=== PATIENT | male | born 1955 | race Two or more races ===

== ENCOUNTER → 2017-09-08 | Outpatient (CLI) | payer BC | LOC: M SMT PRO 08:32 | DX: R97.20 Elevated prostate specific antigen [PSA] (principal) | CPT/HCPCS: G0416 ==

== ENCOUNTER → 2017-09-21 | Outpatient (REF) | payer BC | LOC: M SMT 17:22 | DX: R33.9 Retention of urine, unspecified (principal) | CPT/HCPCS: 87086 ==

== ENCOUNTER → 2021-10-22 | Outpatient (CLI) | payer BC, MEDICARE | LOC: M PLALAB 15:41 | PROVIDERS: ATTEND Urology | DX: R97.20 Elevated prostate specific antigen [PSA] (principal) ==

== ENCOUNTER → 2021-12-31 | Outpatient (REF) | payer BC, MEDICARE | LOC: M LAB REF 17:33 | PROVIDERS: ATTEND Surgery | DX: D22.5 Melanocytic nevi of trunk (principal); L90.5 Scar conditions and fibrosis of skin ==

== ENCOUNTER → 2022-03-07 | Outpatient (REF) | payer MEDICARE | LOC: M SFHCDERM 08:03 | PROVIDERS: ATTEND Nurse Practitioner Family | DX: D22.5 Melanocytic nevi of trunk (principal) ==

== ENCOUNTER → 2022-04-29 | Outpatient (REF) | payer MEDICARE | LOC: M LAB REF 17:33 | PROVIDERS: ATTEND Surgery | DX: D22.5 Melanocytic nevi of trunk (principal) ==

== ENCOUNTER → 2022-10-07 | Outpatient (CLI) | payer MEDICARE | LOC: M PLALAB 14:21 | PROVIDERS: ATTEND Urology | DX: R97.20 Elevated prostate specific antigen [PSA] (principal) ==

== ENCOUNTER → 2022-12-04 | Outpatient (CLI) | payer MEDICARE | LOC: M PLALAB 14:38 | PROVIDERS: ATTEND Urology | DX: R97.20 Elevated prostate specific antigen [PSA] (principal) ==

== ENCOUNTER → 2023-12-09 | Outpatient (CLI) | payer MEDICARE | LOC: M PLALAB 15:22 | PROVIDERS: ATTEND Urology | DX: R97.20 Elevated prostate specific antigen [PSA] (principal) ==

== ENCOUNTER → 2024-12-15 | Outpatient (CLI) | payer MEDICARE ==
[2024-12-19 15:16] LABS: PSA FREE 1.2 ng/mL; PSA TOTAL 6.8 ng/mL (< OR = 4.0)
== END ==
LOC: M PLALAB 14:17
PROVIDERS: ATTEND Urology
DX: R97.20 Elevated prostate specific antigen [PSA] (principal)

== ENCOUNTER → 2025-02-02 | Outpatient (CLI) | payer MEDICARE | LOC: M PLALAB 15:37 | PROVIDERS: ATTEND Urology | DX: R97.20 Elevated prostate specific antigen [PSA] (principal) ==